=== PATIENT | female | born 1975 | race Caucasian/White ===

== ENCOUNTER 2023-10-16 15:48 | Emergency (ER) | payer MEDICAID, SELFPAY ==
[2023-10-16 15:53] VITALS: BP 120/70; PULSE 73; RESP 20; TEMP 36.4; O2SAT 100; BMI 40.6
--- NOTE | 2023-10-16 15:57 | ED.GENADULT ---
HPI - General Adult General Chief complaint: General Medical Stated complaint: missed dose of methadone Time Seen by Provider: 10/16/23 15:57 Source: patient Mode of arrival: ambulatory Limitations: no limitations History of Present Illness HPI narrative: Patient is a 48-year-old female who presents to the emergency department reporting that she missed her methadone dosage today. She was working until 14:30. She is currently seen at [facility] in clinic on [facility] and [place], reports her current dosage to be 140 mg. Related Data Home Medications ?Medication ?Instructions ?Recorded ?Confirmed methadone 10 mg/mL oral 140 mg PO DAILY 10/16/23 10/16/23 concentrate (Methadone Intensol) Allergies Allergy/AdvReac Type Severity Reaction Status Date / Time sulfamethoxazole Allergy Swelling Verified 10/16/23 15:55 [From Bactrim] trimethoprim [From Bactrim] Allergy Swelling Verified 10/16/23 15:55 Review of Systems Review of Systems: Yes all other systems are reviewed and are negative PMFSH Past Medical History Attestation statement: The following information was validated with the patient. Source: old records reviewed Social History Social History (System 08/27/22 @ 10:46 by Arabella Monzon) Advance Directives: No Advance Directives Information Provided: No Do you have a plan to hurt others: No Plan Physical Exam ED Vital Signs: Vital Signs - 24 hr 10/16/23 15:53 Temperature 97.5 F Pulse Rate 73 Respiratory Rate 20 Blood Pressure 120/70 Pulse Oximetry 100 Oxygen Delivery Method Room Air BMI result Body Mass Index 40.6 Appearance: Alert.?Oriented to person, place and time. No acute distress.?Normal affect.?? Neck: Normal inspection.? Neck supple.?? CVS: Heart sounds normal. Normal heart rate and rhythm.? Pulses normal.?? Respiratory: No respiratory distress.? Lung sounds clear to auscultation bilaterally?? Skin: Skin warm and dry.? Normal skin color.? Neuro: Moves all extremities spontaneously. Sensation intact bilaterally. Ambulates with normal steady gait. Medications Administered Discontinued Medications Generic Name Dose Route Start Last Admin Trade Name Freq PRN Reason Stop Dose Admin Methadone HCl 140 mg 10/16/23 16:02 10/16/23 16:40 Methadone Hcl 20 Mg/2 Ml Oral.Conc PO 10/16/23 16:03 140 mg ONCE ONE Administration Medical Decision Making Medical Decision Making MDM Narrative: Patient is a 48-year-old female with past medical history of opioid use disorder on methadone, presents to the emergency department as she missed her appointment at the clinic today. [facility] and [place] was contacted, her methadone dosage was verified 140 mg and she was dosed in the department. Provided with a last dose letter and cleared for discharge. Differential Diagnosis Differential Diagnoses: The differential diagnosis associated with the presentation includes (Opioid use disorder, methadone dependence) External Record Review External record reviewed: Outpatient record (See narrative above) Social Determinants Patient?s care significantly limited by Social Determinants of Health including: Alcoholism and drug addiction in family Discharge Plan Discharge Clinical Impression: Methadone dependence Patient Disposition: Home, Self-Care Additional Instructions: You were seen in the emergency department today after missing methadone dosage at the clinic. You received a single dose of methadone 140mg. Prescriptions: No Action methadone [Methadone Intensol] 10 mg/mL Concentrate 140 mg PO DAILY Referrals: Melissa Saunders PA [Primary Care Provider] - Print Language: Angolan
--- NOTE | 2023-10-16 16:10 | PC.NURSE ---
methadone dose verified with [facility] clinic on [facility] [place] and faxed over to pharmacy
--- NOTE | 2023-10-16 16:17 | HE.PHANOTE ---
Methadone verification form received from [facility] clinic, patient given take home bottles to last until 10/14. Current dose 140 mg
[2023-10-16] MEDS: methADONE HCl 20 MG/2 ML ORAL.CONC 140 MG PO (16:40)
[2023-10-16 16:51] VITALS: BP 120/70; PULSE 73; RESP 20; TEMP 36.4; O2SAT 100
== END 2023-10-16 16:52 | disposition home or self-care (01) ==
PROVIDERS: Emergency Provider Emergency Medicine; PCP Physician Assistant
DX: F11.20 Opioid dependence, uncomplicated (principal)
CPT/HCPCS: 99282; 99283